=== PATIENT | female | born 1990 | race Caucasian/White ===

== ENCOUNTER 2016-11-15 23:51 | Emergency (ER) | payer MEDICAID ==
[~2016-11-15] VITALS: Ht 160 cm; Wt 72.6 kg
[~2016-11-15 23:51] MED LIST: PNV1TABL34 PO
--- NOTE | 2016-11-16 00:04 | NUR ---
STATUS PT DENIES ANY HOME MEDS ON A DAILY BASIS, PT ALERT, TALKATIVE, ANSWERS QUESTIONS APPROPRIATELY, RESP EVEN AND UNLABORED, SKIN PINK WARM AND DRY
--- NOTE | 2016-11-16 00:16 | ER.PDOC ---
General Chief Complaint: General Complaint Stated Complaint: TEMP LOST SIGHT IN EYE TRAVEL OUT OF US: No Time seen by MD: 22:14 Source: patient Exam Limitations: no limitations History of Present Illness Initial Comments Headache and not able ro remember for a shot period. Also had tunnel vision in the right eye. Had a baby 5 days ago. No chest pain or shortness of breath. Her blood pressure was elevated. Timing/Duration: 4-6 hours Severity: moderate Associated Symptoms: headaches Allergies: Coded Allergies: No Known Allergies (Unverified , 11/16/16) Home Meds Reported Medications Pnv With Ca,No.72/Iron/Fa ( Plus Iron Tablet)1 Each Tablet1 Tab PO DAILY #0 TAB Ref 0 09/16/16 Past Medical History Medical History: no pertinent history Surgical History: knee LMP (females 10-50): CHILDBIRTH [birth year] Social History Smoking: non-smoker Alcohol Use: none Drug Use: none Review of Systems Constitutional: no symptoms reported Respiratory: no symptoms reported Cardiovascular: no symptoms reported Gastrointestinal: no symptoms reported Genitourinary: no symptoms reported Musculoskeletal: no symptoms reported Skin: no symptoms reported Psychiatric/Neurological: see HPI All Other Systems: Reviewed and Negative Physical Exam General Appearance: No Apparent Distress, WD/WN Neck: Non-Tender, Full Range of Motion, Supple, Normal Inspection Respiratory: chest non-tender, lungs clear, normal breath sounds, no accessory muscle use CVS: reg rate & rhythm, no murmur, no gallop, pulses nml Gastrointestinal: Normal Bowel Sounds, No Organomegaly, No Pulsatile Mass, Non Tender Back: Normal Inspection, No CVA Tenderness Extremities: Normal Range of Motion Neurologic/Psychiatric: linux unix engineer II-XII NML as Tested, No Motor/Sensory Deficits, Alert, Oriented x 3 Results/Orders Results/Orders Laboratory Tests Test 11/16/16 00:20 White Blood Count 8.710^3/uL (4.5-11.0) Red Blood Count 4.3410^6/uL (4.00-5.20) Hemoglobin 13.1g/dL (12.0-15.0) Hematocrit 39.3% (36.0-46.0) Mean Corpuscular Volume 90.6fL (78-100) Mean Corpuscular Hemoglobin 30.2pg (26-34) Mean Corpuscular Hemoglobin Concent 33.3g/dL (33-37) Red Cell Distribution Width 14.2% (11.5-14.5) Platelet Count 61096^3/uL (150-400) Mean Platelet Volume 10.0fL (7.8-11.0) Neutrophils (%) (Auto) 67.3% (41.0-85.0) Lymphocytes (%) (Auto) 20.6% (24.0-44.0) Monocytes (%) (Auto) 9.1% (5.0-12.0) Neutrophils # (Auto) 5.810^3/uL (1.8-7.7) Lymphocytes # (Auto) 1.810^3/uL (1.0-4.8) Monocytes # (Auto) 0.810^3/uL (0.3-0.8) Absolute Immature Granulocyte (auto 0.0410^3 u/L (0-2) Eosinophils % 2.3% (0.0-5.0) Basophils % 0.2% (0.0-0.2) Basophils # 0.010^3/uL (0.0-0.1) Eosinophil Count 0.210^3/uL (0.0-0.2) Sodium Level 141mmol/L (132-145) Potassium Level 4.4mmol/L (3.6-5.2) Chloride Level 106.0mmol/L (96-109) Carbon Dioxide Level 26.9mmol/L (20.0-32) Anion Gap 12.5 Blood Urea Nitrogen 8mg/dL (7-18) Creatinine 0.74mg/dL (0.59-1.40) Estimat Glomerular Filtration Rate 0 BUN/Creatinine Ratio 10.0 Glucose Level 102mg/dL (70-110) Calculated Osmolality 289.8 Calcium Level 8.5mg/dL (8.4-10.5) Total Bilirubin 0.2mg/dL (0.2-1.0) Aspartate Amino Transf (AST/SGOT) 19U/L (0-35) Alanine Aminotransferase (ALT/SGPT) 18U/L (12-78) Alkaline Phosphatase 93U/L (50-136) Total Protein 6.2g/dL (6.4-8.2) Albumin 2.8g/dL (3.4-5.0) Globulin 3.4 Percent Immature Gran (Cell Imm) 0.50% (0.00-0.50) Progress Progress Feels better. Her blood pressure back to normal. EKG/XRAY/CT/US CT Comments: No acute abnormality on CT head Departure Time of Disposition: 23:03 Disposition: 09 ADMITTED INPATIENT Impression: Primary Impression: Headache Qualified Code: R51 - Headache Additional Impression: Elevated blood pressure reading Condition: Improved Referrals: PCP,UNKNOWN (PCP) PRIMARY CARE PROVIDER Additional Instructions: Keep a blood pressure diary F/U with your Doctor in 2-3 days CHANTELL QUINONES MD Nov 16, 2016 00:16
--- NOTE | 2016-11-16 00:19 | NUR ---
PT TO CT
--- NOTE | 2016-11-16 00:25 | NUR ---
RETURNED TO FROM CT
[2016-11-16 00:39] LABS: CALCIUM 8.5 mg/dL (8.4-10.5); CARBON DIOXIDE 26.9 mmol/L (20.0-32)
[2016-11-16 00:40] LABS: BASOPHIL % 0.2 % (0.0-0.2); EOSINOPHIL # 0.2 10^3/uL (0.0-0.2); EOSINOPHIL % 2.3 % (0.0-5.0); HEMATOCRIT 39.3 % (36.0-46.0); HEMOGLOBIN 13.1 g/dL (12.0-15.0); LYMPHOCYTES # 1.8 10^3/uL (1.0-4.8); LYMPHOCYTES % 20.6 % (24.0-44.0); MEAN CELL HGB 30.2 pg (26-34); MEAN CELL HGB CONCENTRATION 33.3 g/dL (33-37); MEAN CORP VOLUME 90.6 fL (78-100); MONOCYTES # 0.8 10^3/uL (0.3-0.8); MONOCYTES % 9.1 % (5.0-12.0); NEUTROPHIL # 5.8 10^3/uL (1.8-7.7); NEUTROPHILS % 67.3 % (41.0-85.0); RED CELL DISTRIBUTION WIDTH 14.2 % (11.5-14.5); WHITE BLOOD CELL 8.7 10^3/uL (4.5-11.0)
--- NOTE | 2016-11-16 00:53 | DIREP ---
PROCEDURE:CT HEAD WITHOUT CONTRAST TECHNIQUE:Axial cuts were obtained through the head, without intravenous contrast material. The images were viewed at brain and bone settings. COMPARISON:None. INDICATIONS:AMS FINDINGS: VENTRICLES:There is no hydrocephalus. CEREBRUM:There is no CT evidence of mass, hemorrhage, or acute infarct. CEREBELLUM:Normal. BRAINSTEM:Normal. SKULL:Normal. SINUSES:Normal. OTHER:Negative. CONCLUSION:No acute abnormality is identified. Dictated by: Glen Munoz MD on 11/16/2016 at 00:50 AM
[2016-11-16] MEDS ORDERED: TYLENOL PO STA (01:00)
[2016-11-16] MEDS ORDERED: TYLENOL PO ONE (01:05)
[2016-11-16 01:09] VITALS: BP 135/78
--- NOTE | 2016-11-16 01:15 | NUR ---
DISCHARGE DISCHARGE INSTRUCTIONS DISCUSSED. PT VERBALIZED UNDERSTANDING. ENCOURAGED TO RETURN FOR ANY CONCERNS.
== END 2016-11-16 01:15 | disposition other institution (70) ==
LOC: ER 23:51
DX: R51 Headache (principal); R03.0 Elevated blood-pressure reading, without diagnosis of hypertension; H53.481 Generalized contraction of visual field, right eye; Z79.899 Other long term (current) drug therapy
CPT/HCPCS: 36415; 70450; 80053; 85025; 99285